=== PATIENT | female | born 1985 | race Caucasian/White ===

== ENCOUNTER 2021-11-13 12:49 | Emergency (ER) | payer OTHER ==
[~2021-11-13 12:49] MED LIST: AUGMENTIN 875-1 EACH PO; BACTRIM DS TAB1 EACH PO; CRESTOR5 MG PO; DOXYCYCLINE HY100 MG PO; JANUVIA50 MG PO; LANTUS **100 UNITS/ SC; METFORMIN HCL500 M2 PO; NORCO 5-325 TA1 EACH PO; PRINIVIL20 MG PO; ZOLOFT50 MG PO
[2021-11-13 14:17] LABS: BASOPHIL 0.6 % (0-2); EOSINOPHIL 2.1 % (0-5); HCT 44.6 % (37.0-47.0); HGB 15.2 g/dl (12.5-16.0); LYMPHOCYTE 23.4 % (15-48); MCH 28.8 pg (25.0-31.0); MCHC 34.1 g/dL (32.0-36.0); MCV 84.6 fL (78.0-100.0); MONOCYTE 7.6 % (0-12); MPV 10.7 fL (6.0-9.5); NEUTROPHIL 65.9 % (41-80); NRBC 0; PLT 318 K/uL (150-400); RBC 5.27 M/uL (4.20-5.40); RDW 13.5 % (11.5-14.0); WBC 7.8 K/uL (4.0-10.5)
[2021-11-13 14:45] LABS: LACTIC ACID 1.1 mmol/L (0.4-1.9)
[2021-11-13 14:48] LABS: ALBUMIN 2.9 g/dL (3.4-5.0); BILIRUBIN - TOTAL 0.7 mg/dL (0.2-1.0); BUN/CREAT RATIO (CALC) 10.9 RATIO; CREATININE 0.55 mg/dL (0.51-0.95); GLOBULIN (CALCULATION) 3.8 g/dL; POTASSIUM 3.1 mmol/L (3.5-5.1); TOTAL PROTEIN 6.7 g/dL (6.4-8.2)
== END 2021-11-13 17:25 | disposition home or self-care (01) ==
LOC: FER 12:49
PROVIDERS: Physician Assistant
DX: L02.214 Cutaneous abscess of groin (principal); E11.65 Type 2 diabetes mellitus with hyperglycemia; I10 Essential (primary) hypertension; F17.210 Nicotine dependence, cigarettes, uncomplicated; Z28.310 Unvaccinated for COVID-19; Z88.5 Allergy status to narcotic agent; Z79.4 Long term (current) use of insulin; Z79.84 Long term (current) use of oral hypoglycemic drugs
CPT/HCPCS: 36415; 80053; 83605; 85025; 96372; J7030